=== PATIENT | male | born 1970 | race Two or more races ===

== ENCOUNTER 2020-05-09 18:24 | Emergency (ER) | payer SELFPAY | END 2020-05-09 21:13 | disposition left against medical advice (07) | PROVIDERS: Emergency Provider Emergency Medicine | DX: R10.9 Unspecified abdominal pain (principal) ==

== ENCOUNTER 2022-07-12 09:38 | Outpatient (REF) | payer MEDICAID, OTHER, SELFPAY ==
--- NOTE | ~2022-07-12 | XR_ITS ---
EXAMINATION: Left ankle and right elbow. CLINICAL INDICATIONS: Pain. COMPARISON: None. TECHNIQUE: Right elbow 3 views. Left ankle 3 views. FINDINGS: Left ankle: There is no visible acute fracture, dislocation or subluxation seen. The ankle mortise and subtalar joints are normal. There is a small retrocalcaneal and medial malleolar spur. No abnormal soft tissue swelling seen. Right elbow: The joint space is maintained normal. No loose bodies, periarticular spurring or bony erosive changes. No acute fracture or dislocation. No joint effusion. XR/XR ankle LT 2V IMPRESSION: Unremarkable right elbow. Minimal spurring along the retrocalcaneaum and tip of medial malleolus.
--- NOTE | ~2022-07-12 | XR_ITS ---
EXAMINATION: XR CHEST CLINICAL INFORMATION: Chest pain COMPARISON: None available. TECHNIQUE: 2 views of the chest were obtained. FINDINGS: Lungs clear. No pneumothorax, pleural reaction, infiltrate, or effusion. The heart is normal in size. The vascularity is normal. The hilar and mediastinal contours are unremarkable. There are mild multilevel degenerative changes thoracic spine. Old healed left clavicular fracture. XR/XR chest 2V IMPRESSION: Lungs clear. No acute intrathoracic disease.
--- NOTE | ~2022-07-12 | XR_ITS ---
EXAMINATION: Left ankle and right elbow. CLINICAL INDICATIONS: Pain. COMPARISON: None. TECHNIQUE: Right elbow 3 views. Left ankle 3 views. FINDINGS: Left ankle: There is no visible acute fracture, dislocation or subluxation seen. The ankle mortise and subtalar joints are normal. There is a small retrocalcaneal and medial malleolar spur. No abnormal soft tissue swelling seen. Right elbow: The joint space is maintained normal. No loose bodies, periarticular spurring or bony erosive changes. No acute fracture or dislocation. No joint effusion. XR/XR elbow RT 2V IMPRESSION: Unremarkable right elbow. Minimal spurring along the retrocalcaneaum and tip of medial malleolus.
== END 2022-07-12 09:39 | disposition home or self-care (01) ==
LOC: HO.XRAY 09:38
PROVIDERS: Visit Provider Family Medicine
DX: M25.572 Pain in left ankle and joints of left foot (principal); M77.11 Lateral epicondylitis, right elbow; R07.9 Chest pain, unspecified
CPT/HCPCS: 71046; 73070; 73600

== ENCOUNTER → 2022-08-05 19:30 | Outpatient (REF) | payer MEDICAID, OTHER, SELFPAY | LOC: HO.SL 19:30 | PROVIDERS: Visit Provider Family Medicine | DX: Z01.818 Encounter for other preprocedural examination (principal); G47.30 Sleep apnea, unspecified | CPT/HCPCS: 99202 ==

== ENCOUNTER 2024-02-08 08:43 | Outpatient (REF) | payer MEDICAID, SELFPAY ==
[2024-02-08 14:30] LABS: MANUAL DIFF FLAG NO
[2024-02-08 14:34] LABS: Basophils Percent Auto 0.6 % (0-2); Eosinophils Absolute Auto 0.1 X10*3/uL (0.0-0.4); Eosinophils Percent Auto 2.2 % (0-4); Hematocrit 42.9 % (42.0-52.0); Hemoglobin 14.4 g/dl (14.0-18.0); Lymphocytes Absolute Auto 2.4 X10*3/uL (1.2-4.9); Lymphocytes Percent Auto 43.9 % (20-40); Mean Corpuscular HGB Conc 33.6 g/dl (31.0-36.0); Mean Corpuscular Volume 92.3 fL (80.0-98.0); Mean Platelet Volume 9.7 fL (9.4-12.4); Monocytes Absolute Auto 0.5 X10*3/uL (0.1-1.2); Monocytes Percent Auto 9.2 % (2-11); Neutrophils Absolute Auto 2.4 x10*3/uL (2.0-8.3); Neutrophils Percent Auto 44.1 % (45-73); Platelet Count 224 X10*3/uL (160-400); Red Blood Count 4.65 X10*6/uL (4.60-5.80); Red Cell Distribution Width 12.6 % (11.0-16.0); White Blood Count 5.4 X10*3/uL (4.8-10.8)
[2024-02-08 15:00] LABS: Alanine Aminotransferase 29 U/L (0-40); Albumin Level 4.4 g/dL (3.5-5.0); Alkaline Phosphatase 70 U/L (39-117); Anion Gap 11 (12-20); Aspartate Amino Transferase 30 U/L (5-37); Bilirubin Total 0.2 mg/dL (0.0-1.0); Blood Urea Nitrogen 16 mg/dL (9-16); Calcium 9.4 mg/dL (8.4-10.2); Carbon Dioxide 27 mmol/L (22-29); Chloride 108 mmol/L (96-108); Cholesterol 175 mg/dL (<200); Estimated Glomerular Filt Rate > 60; Glucose Random 96 mg/dL (60-115); HDL Cholesterol 54 mg/dL (>40); LDL Cholesterol Calculated 104 mg/dL (<100); Potassium 3.7 mmol/L (3.3-5.1); Sodium 142 mmol/L (135-145); Total Protein 7.2 g/dL (6.5-8.0); Triglycerides 88 mg/dL (<150)
[2024-02-08 15:03] LABS: PSA,Total (Free>4and<10) 0.53 ng/mL (0.00-4.00)
[2024-02-09 08:34] LABS: HIV AB/AG Nonreactive (Nonreactive); HIV Num 1 0.06 S/CO (0.00-0.99); ~HepC Num1 0.12 S/CO (0.00-0.79); ~Hepatitis C Antibody Nonreactive (Nonreactive)
== END 2024-02-08 08:44 | disposition home or self-care (01) ==
LOC: HO.CHCLDS 08:43
PROVIDERS: Visit Provider Family Medicine
DX: E66.3 Overweight (principal); Z13.9 Encounter for screening, unspecified; Z12.5 Encounter for screening for malignant neoplasm of prostate
CPT/HCPCS: 36415; 80053; 80061; 84153; 85025; 86803; 87389

== ENCOUNTER 2024-09-06 08:16 | Outpatient (REF) | payer MEDICAID, SELFPAY ==
--- OUTSIDE RECORDS SUMMARY | 2024-09-06 08:30 | XMS_ITS | Encounter Summary ---
Author Organization [email or web address] [facility] Address [address] [place] [address] Care Team Providers Care Teacher Learning Disabled Name Role Phone Courtney Aquino MD Primary Care Provider [phone] Encounter Details Date Type Department Care Team (Latest Contact Info) Description 06/01/2021 Abstract [facility] CONVERSIONS Dental, Provider, DDS Social History Tobacco Use Types Packs/Day Years Used Date Smoking Tobacco: Never Assessed Sex and Gender Information Value Date Recorded Sex Assigned at Male 02/15/2022 10:20 AM EDT Legal Sex Male 10:20 AM EDT Gender Identity Male 02/15/2022 10:20 AM EDT Sexual Orientation Straight 02/15/2022 10 :20 AM EDT documented as of this encounter Plan of Treatment Upcoming Encounters Date Type Department Care Team (Late st Contact Info) Description 11/19/2024 8:00 AM EDT Office Visit [facility] [address] [place] [address] Flaco Quiñones documented as of this encounter Visit Diagnoses Not on filedocumented in this encounter Care Teams Teacher Learning Disabled Relationship Specialty Start Date End Date Courtney Aquino MD [address] [place] [address] PCP - General Family Medicine 07/01/22 documented as of this encounter
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
--- OUTSIDE RECORDS SUMMARY | 2024-09-06 08:30 | XMS_ITS | Encounter Summary ---
Author Organization [email or web address] [facility] Address [address] [place] [address] Care Team Providers Care Storm Chaser Name Role Phone Courtney Aquino MD Primary Care Provider [phone] Encounter Details Date Type Department Care Team (Latest Contact Info) Description 05/01/2018 Abstract [facility] CONVERSIONS Dental, Provider, DDS Social History Tobacco [...] Description 11/19/2024 8:00 AM EDT Office Visit [facility] [address] [place] [address] Flaco Quiñones documented as of this encounter Visit Diagnoses Not on filedocumented in this encounter Care Teams Storm Chaser Relationship Specialty Start Date End Date Courtney Aquino MD [address] [place] [address] PCP - General Family Medicine 07/01/22 documented as of this encounter
[2024-09-11 14:14] LABS: Quantiferon TB Gold Plus 1 NEGATIVE (NEGATIVE); TB Test (QFT) Mitogen -Nil 8.91 IU/mL; TB Test (QFT) Nil 0.03 IU/mL; TB Test (QFT) Plus TB1 -Nil 0.01 IU/mL; TB Test (QFT) Plus TB2 -Nil 0.02 IU/mL
== END 2024-09-06 08:17 | disposition home or self-care (01) ==
LOC: HO.CHCLDS 08:16
PROVIDERS: Visit Provider Internal Medicine
DX: Z11.1 Encounter for screening for respiratory tuberculosis (principal)
CPT/HCPCS: 36415; 86480